=== PATIENT | female | born 1960 | race Caucasian/White ===

== ENCOUNTER 2023-10-10 16:10 | Inpatient (IN) | payer OTHER ==
[~2023-10-10] VITALS: Ht 165.1 cm; Wt 90.7 kg
[2023-10-10] MEDS: PIPERACILLIN /TAZOBACTAM 3.375 G in IV D5W 50 ML IV ONE (16:30)
[2023-10-10] MEDS: IV NS 0.9% 1,000 ML BAG IV ONE (17:00)
[2023-10-10] MEDS: VANCOMYCIN 1 GM in IV D5W 250 ML IV ONE (17:00)
[2023-10-10 17:15] LABS: BASOPHILS % (AUTO) 0.2 % (0.0-2.0); HEMATOCRIT 32 % (33-45); HEMOGLOBIN 10.5 g/dL (11.5-14.8); LYMPHOCYTES # (AUTO) 1.1 K/uL (0.8-4.8); LYMPHOCYTES % (AUTO) 5.6 % (20.0-44.0); MEAN CORPUSCULAR HEMOGLOBIN 27 PG (26.0-33.0); MEAN CORPUSCULAR HGB CONC 32 g/dl (31.0-36.0); MEAN CORPUSCULAR VOLUME 83 fL (82-100); MONOCYTES # (AUTO) 1.2 K/uL (0.1-1.30); MONOCYTES % (AUTO) 5.8 % (2.0-12.0); NEUTROPHILS # (AUTO) 17.8 K/uL (1.8-8.9); NEUTROPHILS % (AUTO) 88.4 % (43.0-81.0); PLATELET COUNT (AUTO) 373 K/uL (150-450); RED BLOOD CELL COUNT(AUTO) 3.92 MIL/uL (4.0-5.2); RED CELL DISTRIBUTION WIDTH 15.5 % (11.5-15.0); WHITE BLOOD COUNT (AUTO) 20.1 K/uL (4.3-11.0)
[2023-10-10 17:31] LABS: INR 1.12 (0.91-1.10); PARTIAL THROMBOPLASTIN TIME 27.1 SEC (24.3-34.3); PROTHROMBIN TIME 11.8 SECS (9.2-11.1)
[2023-10-10 17:33] LABS: CALCIUM, SERUM 8.9 mg/dL (8.5-10.1); CARBON DIOXIDE 22 mmol/L (21-32); CHLORIDE 108 mmol/L (98-107); CREATININE 3.1 mg/dL (0.6-1.3); GLUCOSE 144 mg/dL (74-106); POTASSIUM 3.2 mmol/L (3.5-5.1); SERUM AMMONIA 14 umol/L (11-32); SODIUM SERUM 145 mmol/L (136-145)
[2023-10-10 17:34] LABS: ALCOHOL, BLOOD < 3 mg/dL (0-10); SALICYLATE 3.4 mg/dL (2.8-20.0); UREA NITROGEN, BLOOD 82 mg/dL (7-18)
[2023-10-10 17:35] LABS: ACETAMINOPHEN 0 ug/ml (10-30)
[2023-10-10 17:40] LABS: LACTIC ACID 3.1 mmol/L (0.4-2.0)
[2023-10-10 17:45] LABS: ALANINE AMINOTRANSFERASE 39 U/L (12-78); ALBUMIN 3.3 g/dL (3.4-5.0); ALKALINE PHOSPHATASE 76 U/L (46-116); ASPARTATE AMINOTRANSFERASE 54 U/L (15-37); BILIRUBIN,DIRECT 0.1 mg/dL (0.0-0.2); BILIRUBIN,TOTAL 0.6 mg/dL (0.2-1.0); TOTAL PROTEIN, SERUM 6.4 g/dL (6.4-8.2)
[2023-10-10 17:47] LABS: THYROID STIMULATING HORMONE 0.569 uIU/mL (0.358-3.74)
[2023-10-10] MEDS: IV LR 1000 ML 1,000 ML BAG IV ONE (18:00)
[2023-10-10 18:13] LABS: LYMPHOCYTES % (MANUAL) 2 % (16-48); MONOCYTES % (MANUAL) 2 % (0-11.0); NEUTROPHILS % (MANUAL) 96 (42-76); PLATELET ESTIMATE ADEQUATE
[2023-10-10] MEDS: MIDAZOLAM HCL 2 MG/2ML VIAL IV ONE (18:30)
[2023-10-10] MEDS ORDERED: MIDAZOLAM HCL 5 MG/5ML VIAL ONE (18:36)
[2023-10-10] MEDS ORDERED: IV NS 0.9% 250 ML IV ONE (19:29)
[2023-10-10] MEDS ORDERED: IOHEXOL-300 100 ML VIAL IV ONE (19:29)
[2023-10-10 20:33] LABS: INR 1.14 (0.91-1.10); PARTIAL THROMBOPLASTIN TIME 26.5 SEC (24.3-34.3)
[2023-10-10 20:34] LABS: APPEARANCE,URINE CLEAR (CLEAR); BILIRUBIN,URINE NEGATIVE (NEGATIVE); BLOOD, URINE 3+ Ery/uL (NEGATIVE); COLOR,URINE YELLOW (YELLOW); KETONES,URINE NEGATIVE (NEGATIVE); LEUKOCYTE ESTERASE ,URINE NEGATIVE (NEGATIVE); NITRITE, URINE NEGATIVE (NEGATIVE); PH,URINE 5.5 (5.0-8.0); PROTEIN,URINE TRACE mg/dl (NEGATIVE); UGLUCOSE NEGATIVE (NEGATIVE); UROBILINOGEN,URINE 0.2 EU/dL (0.2)
[2023-10-10 20:36] LABS: BARBITURATE, URINE NEGATIVE (NEGATIVE); BENZODIAZEPINE, URINE NEGATIVE (NEGATIVE); CANNABINOID, URINE NEGATIVE (NEGATIVE); COCCAINE, URINE NEGATIVE (NEGATIVE); OPIATE, URINE NEGATIVE (NEGATIVE); PHENCYCLIDINE SCREEN,URINE NEGATIVE (NEGATIVE)
[2023-10-10 20:38] LABS: AMPHETAMINE, URINE POSITIVE (NEGATIVE)
[2023-10-10 20:46] LABS: PREGNANCY TEST URINE QUAL NEGATIVE (NEGATIVE)
[2023-10-10 21:13] LABS: ADD URINE CULTURE NO; BACTERIA,URINE Few /HPF (None Seen); MUCUS,URINE Few /LPF (None Seen); URIC ACID CRYSTALS,URINE Moderate /HPF (None Seen); WBC,URINE 0-2 /HPF (0-3)
[2023-10-10] MEDS: IV NS 0.9% 1,000 ML IV ONE (21:45)
[2023-10-10 22:30] VITALS: BP 156/95; TEMP 98; O2SAT 98
[2023-10-10] MEDS ORDERED: MAG HYDROX/AL HYDROX/SIMETH 30 ML UDC PO PRN (23:30)
[2023-10-10] MEDS ORDERED: Z GUARD REMEDY 4 OZ OINT TP PRN (23:30)
[2023-10-10] MEDS ORDERED: MAGNESIUM HYDROXIDE 30 ML UDC PO PRN (23:30)
[2023-10-10] MEDS ORDERED: ZOLPIDEM TARTRATE 5 MG TABLET PO PRN (23:30)
[2023-10-10] MEDS ORDERED: ONDANSETRON HCL/PF 4 MG/2 ML VIAL IVP PRN (23:30)
[2023-10-11] VITALS: BP 167/64; TEMP 98; O2SAT 99
[2023-10-11] MEDS ORDERED: ZOSYN IVPB 3.375 G in IV D5W 50ml IV ONE
[2023-10-11] MEDS: POTASSIUM CHLORIDE 20 MEQ TAB.PRT.SR PO ONE (00:11)
[2023-10-11] MEDS: PIPERACI/TAZO 3.375GM/D5W 50ML PB IV ONE (02:08)
[2023-10-11] MEDS: ZOSYN IVPB 3.375 G in IV D5W 50ml IV ONE (02:09)
[2023-10-11] MEDS: IV 1/2NS 1000 ML 1,000 ML IV PRN (02:31)
[2023-10-11 04:00] VITALS: BP 154/65; TEMP 98.9; O2SAT 100
[2023-10-11 06:46] LABS: BASOPHILS # (AUTO) 0.1 K/uL (0.0-0.2); BASOPHILS % (AUTO) 0.4 % (0.0-2.0); EOSINOPHILS # (AUTO) 0.1 K/uL (0.0-0.7); EOSINOPHILS % (AUTO) 0.4 % (0.0-6.0); HEMATOCRIT 27 % (33-45); HEMOGLOBIN 8.9 g/dL (11.5-14.8); LYMPHOCYTES # (AUTO) 1.5 K/uL (0.8-4.8); MEAN CORPUSCULAR HEMOGLOBIN 27 PG (26.0-33.0); MEAN CORPUSCULAR HGB CONC 33 g/dl (31.0-36.0); MEAN CORPUSCULAR VOLUME 83 fL (82-100); MONOCYTES # (AUTO) 0.7 K/uL (0.1-1.30); MONOCYTES % (AUTO) 4.5 % (2.0-12.0); NEUTROPHILS # (AUTO) 14.1 K/uL (1.8-8.9); NEUTROPHILS % (AUTO) 85.7 % (43.0-81.0); PLATELET COUNT (AUTO) 277 K/uL (150-450); RED BLOOD CELL COUNT(AUTO) 3.27 MIL/uL (4.0-5.2); RED CELL DISTRIBUTION WIDTH 15.4 % (11.5-15.0); WHITE BLOOD COUNT (AUTO) 16.4 K/uL (4.3-11.0)
[2023-10-11 07:19] LABS: THYROID STIMULATING HORMONE 0.736 uIU/mL (0.358-3.74)
[2023-10-11 07:20] LABS: CALCIUM, SERUM 8.7 mg/dL (8.5-10.1); CREATININE 2.5 mg/dL (0.6-1.3); POTASSIUM 3.4 mmol/L (3.5-5.1)
[2023-10-11 07:57] LABS: MAGNESIUM 2.1 mg/dL (1.8-2.4); PHOSPHORUS 3.2 mg/dL (2.5-4.9)
[2023-10-11 08:00] VITALS: BP 149/76; TEMP 98.8; O2SAT 99
[2023-10-11] MEDS: PANTOPRAZOLE 40 MG TABLET.DR PO SCH (08:22)
[2023-10-11] MEDS: HEPARIN SODIUM, PORCINE 5000 UNITS/1 ML VIAL SQ SCH (09:11)
[2023-10-11 12:00] VITALS: BP 153/65; TEMP 97.7; O2SAT 99
[2023-10-11] MEDS: PIPERACILLIN /TAZOBACTAM 3.375 G in IV D5W 100 ML IV SCH (13:32)
[2023-10-11 16:00] VITALS: BP 153/77; TEMP 98.1; O2SAT 98
[2023-10-11] MEDS: VANCOMYCIN HCL 750 MG in IV D5W 250 ML IV SCH (17:11)
[2023-10-11 20:00] VITALS: BP 162/64; TEMP 98.4; O2SAT 97
[2023-10-12] VITALS: BP 146/74; TEMP 98.4; O2SAT 98
[2023-10-12 04:00] VITALS: BP_SYST 181; BP_DIAS 140; BP_DIAS 158; TEMP 98.2; O2SAT 98
[2023-10-12] MEDS: hydrALAZINE HCL IV 20 MG VIAL IV PRN (04:17)
[2023-10-12 07:00] LABS: BASOPHILS # (AUTO) 0.1 K/uL (0.0-0.2); BASOPHILS % (AUTO) 0.6 % (0.0-2.0); EOSINOPHILS # (AUTO) 0.1 K/uL (0.0-0.7); EOSINOPHILS % (AUTO) 1.5 % (0.0-6.0); HEMATOCRIT 24 % (33-45); HEMOGLOBIN 8.2 g/dL (11.5-14.8); LYMPHOCYTES # (AUTO) 1.3 K/uL (0.8-4.8); LYMPHOCYTES % (AUTO) 13.9 % (20.0-44.0); MEAN CORPUSCULAR HEMOGLOBIN 28 PG (26.0-33.0); MEAN CORPUSCULAR HGB CONC 34 g/dl (31.0-36.0); MEAN CORPUSCULAR VOLUME 84 fL (82-100); MONOCYTES # (AUTO) 0.4 K/uL (0.1-1.30); MONOCYTES % (AUTO) 4.7 % (2.0-12.0); NEUTROPHILS # (AUTO) 7.4 K/uL (1.8-8.9); NEUTROPHILS % (AUTO) 79.3 % (43.0-81.0); PLATELET COUNT (AUTO) 212 K/uL (150-450); RED CELL DISTRIBUTION WIDTH 15.9 % (11.5-15.0); WHITE BLOOD COUNT (AUTO) 9.3 K/uL (4.3-11.0)
[2023-10-12 07:29] LABS: ALBUMIN 2.7 g/dL (3.4-5.0); BILIRUBIN,TOTAL 0.7 mg/dL (0.2-1.0); CALCIUM, SERUM 8.6 mg/dL (8.5-10.1); CREATININE 2.4 mg/dL (0.6-1.3); PHOSPHORUS 2.4 mg/dL (2.5-4.9); POTASSIUM 3.2 mmol/L (3.5-5.1); TOTAL PROTEIN, SERUM 5.9 g/dL (6.4-8.2)
[2023-10-12 08:00] VITALS: BP 153/80; TEMP 98.1; O2SAT 100
[2023-10-12] MEDS: AMLODIPINE BESYLATE 5 MG TABLET PO SCH (08:54)
[2023-10-12] MEDS: POTASSIUM CL. PREMIX PERIPHER. 50 ML IV SCH (10:37)
[2023-10-12 12:00] VITALS: BP 132/79; TEMP 98.4; O2SAT 99
[2023-10-12] MEDS ORDERED: DIATR MEGLU/DIATRIZOATE SODIUM 120 ML BOTTLE (GASTROGRAPHIN) ONE (12:05)
[2023-10-12 12:27] LABS: ABG BASE EXCESS -2.4 mmol/L; ABG OXYGEN SATURATION 97.5 % (92.0-98.5); ABG PH 7.472 (7.350-7.450); ABG PO2 99.3 mmHg (75.0-100.0); ABG TOTAL HEMOGLOBIN 8.3 G/dL (12.0-16.0); AaDO2 15.7 mmHg; COHb 0.8 % (0.5-1.5); O2Hb 96.7 % (94.0-97.0); SITE, ABG Right Radial; VENT MODE, BG ROOM AIR 21 %
[2023-10-12] MEDS: SOD FERRIC GLUC 125 MG in IV NS 0.9% 100 ML IV SCH (13:51)
[2023-10-12 16:00] VITALS: BP 138/78; TEMP 98.2; O2SAT 100
[2023-10-12] MEDS: K PHOS NEUTRAL 250 MG TABLET PO ONE (16:03)
[2023-10-12] MEDS: LORAZEPAM INJ 2 MG/ML VIAL IV PRN (16:15)
[2023-10-12] MEDS: ENSURE ENLIVE 237 ML LIQUID (VANILLA) PO SCH (17:07)
[2023-10-12] MEDS: METRONIDAZOLE 500MG/ NS 100ML 500 MG in PREMIX 1 EA IV SCH (17:08)
[2023-10-12] MEDS: CEFEPIME HCL 2 GM in IV D5W 100 ML IV SCH (17:20)
[2023-10-12 20:00] VITALS: BP 154/88; TEMP 98.1; O2SAT 98
[2023-10-12] MEDS: NICOTINE PATCH (21MG) 21 MG PATCH.TD24 TD SCH (21:16)
[2023-10-13] VITALS: BP 170/78; TEMP 98.3; O2SAT 98
[2023-10-13 04:00] VITALS: BP 154/79; TEMP 98.6; O2SAT 98
[2023-10-13] MEDS: ACETAMINOPHEN 325 MG TABLET PO PRN (04:18)
[2023-10-13 07:57] LABS: BASOPHILS % (AUTO) 0.7 % (0.0-2.0); EOSINOPHILS # (AUTO) 0.2 K/uL (0.0-0.7); EOSINOPHILS % (AUTO) 2.5 % (0.0-6.0); HEMATOCRIT 24 % (33-45); HEMOGLOBIN 7.9 g/dL (11.5-14.8); LYMPHOCYTES % (AUTO) 15.5 % (20.0-44.0); MEAN CORPUSCULAR HEMOGLOBIN 28 PG (26.0-33.0); MEAN CORPUSCULAR HGB CONC 33 g/dl (31.0-36.0); MEAN CORPUSCULAR VOLUME 84 fL (82-100); MONOCYTES # (AUTO) 0.4 K/uL (0.1-1.30); MONOCYTES % (AUTO) 5.5 % (2.0-12.0); NEUTROPHILS # (AUTO) 4.9 K/uL (1.8-8.9); NEUTROPHILS % (AUTO) 75.8 % (43.0-81.0); PLATELET COUNT (AUTO) 220 K/uL (150-450); RED BLOOD CELL COUNT(AUTO) 2.82 MIL/uL (4.0-5.2); RED CELL DISTRIBUTION WIDTH 16.4 % (11.5-15.0); WHITE BLOOD COUNT (AUTO) 6.5 K/uL (4.3-11.0)
[2023-10-13 08:00] VITALS: BP 163/79; TEMP 97.6; O2SAT 98
[2023-10-13 08:07] LABS: RAPID PLASMA REAGIN QUAL. Non Reactive (Non Reactive)
[2023-10-13 08:07] LABS: PTH, INTACT 39 pg/mL (15-65)
[2023-10-13 08:08] LABS: ALBUMIN 2.7 g/dL (3.4-5.0); BILIRUBIN,TOTAL 0.4 mg/dL (0.2-1.0); CALCIUM, SERUM 8.7 mg/dL (8.5-10.1); MAGNESIUM 2.2 mg/dL (1.8-2.4); POTASSIUM 3.3 mmol/L (3.5-5.1); TOTAL PROTEIN, SERUM 5.9 g/dL (6.4-8.2)
[2023-10-13 08:19] LABS: CALCIUM, SERUM 8.7 mg/dL (8.5-10.1); POTASSIUM 3.3 mmol/L (3.5-5.1)
[2023-10-13] MEDS: CYANOCOBALAMIN 500 MCG TABLET PO SCH (08:56)
[2023-10-13] MEDS: POTASSIUM CHLORIDE 10 MEQ TABLET.SA PO ONE (11:36)
[2023-10-13 12:00] VITALS: BP 148/86; TEMP 98.3; O2SAT 98
[2023-10-13] MEDS: FOLIC ACID 1 MG TABLET PO SCH (14:12)
[2023-10-13 16:00] VITALS: BP 156/82; TEMP 97.9; O2SAT 98
[2023-10-13 20:00] VITALS: BP 157/76; TEMP 97.9; O2SAT 98
[2023-10-14 04:00] VITALS: BP 144/72; TEMP 98.2; O2SAT 97
[2023-10-14 07:06] LABS: BASOPHILS % (AUTO) 0.4 % (0.0-2.0); EOSINOPHILS # (AUTO) 0.3 K/uL (0.0-0.7); EOSINOPHILS % (AUTO) 4.7 % (0.0-6.0); HEMATOCRIT 23 % (33-45); HEMOGLOBIN 7.7 g/dL (11.5-14.8); LYMPHOCYTES # (AUTO) 1.4 K/uL (0.8-4.8); LYMPHOCYTES % (AUTO) 23.6 % (20.0-44.0); MEAN CORPUSCULAR HEMOGLOBIN 28 PG (26.0-33.0); MEAN CORPUSCULAR HGB CONC 33 g/dl (31.0-36.0); MEAN CORPUSCULAR VOLUME 84 fL (82-100); MONOCYTES # (AUTO) 0.4 K/uL (0.1-1.30); MONOCYTES % (AUTO) 6.1 % (2.0-12.0); NEUTROPHILS # (AUTO) 3.9 K/uL (1.8-8.9); NEUTROPHILS % (AUTO) 65.2 % (43.0-81.0); PLATELET COUNT (AUTO) 238 K/uL (150-450); RED BLOOD CELL COUNT(AUTO) 2.73 MIL/uL (4.0-5.2); RED CELL DISTRIBUTION WIDTH 16.3 % (11.5-15.0); WHITE BLOOD COUNT (AUTO) 5.9 K/uL (4.3-11.0)
[2023-10-14 07:22] LABS: ALBUMIN 2.4 g/dL (3.4-5.0); BILIRUBIN,TOTAL 0.5 mg/dL (0.2-1.0); CALCIUM, SERUM 8.5 mg/dL (8.5-10.1); CREATININE 1.8 mg/dL (0.6-1.3); POTASSIUM 3.3 mmol/L (3.5-5.1); TOTAL PROTEIN, SERUM 5.4 g/dL (6.4-8.2)
[2023-10-14 08:00] VITALS: BP 159/89; TEMP 98.4; O2SAT 97
[2023-10-14] MEDS: HYDROCODONE/APAP 5/325MG TABLET PO PRN (11:11)
[2023-10-14] MEDS: POTASSIUM CHLORIDE 10 MEQ TABLET.SA PO ONE (11:35)
[2023-10-14] MEDS ORDERED: LORAZEPAM 0.5 MG TABLET PO PRN (12:00)
[2023-10-14 14:35] LABS: HIV-1 p24 ANTIGEN NON REACTIVE (NONREACTIVE); HIV-1/2 ANTIBODY NON REACTIVE (NONREACTIVE)
[2023-10-14 16:00] VITALS: BP 160/84; TEMP 98.6; O2SAT 97
[2023-10-14] MEDS ORDERED: LORAZEPAM INJ 2 MG/ML VIAL IV PRN (16:06)
[2023-10-14 20:00] VITALS: BP 156/79; TEMP 97.7; O2SAT 100
[2023-10-15 04:00] VITALS: BP 155/79; TEMP 98.4; O2SAT 96
[2023-10-15 06:51] LABS: BASOPHILS % (AUTO) 0.6 % (0.0-2.0); EOSINOPHILS # (AUTO) 0.4 K/uL (0.0-0.7); EOSINOPHILS % (AUTO) 7.2 % (0.0-6.0); HEMATOCRIT 24 % (33-45); HEMOGLOBIN 8.1 g/dL (11.5-14.8); LYMPHOCYTES % (AUTO) 19.3 % (20.0-44.0); MEAN CORPUSCULAR HEMOGLOBIN 29 PG (26.0-33.0); MEAN CORPUSCULAR HGB CONC 34 g/dl (31.0-36.0); MEAN CORPUSCULAR VOLUME 84 fL (82-100); MONOCYTES # (AUTO) 0.4 K/uL (0.1-1.30); MONOCYTES % (AUTO) 7.9 % (2.0-12.0); NEUTROPHILS # (AUTO) 3.5 K/uL (1.8-8.9); PLATELET COUNT (AUTO) 228 K/uL (150-450); RED BLOOD CELL COUNT(AUTO) 2.83 MIL/uL (4.0-5.2); RED CELL DISTRIBUTION WIDTH 16.3 % (11.5-15.0); WHITE BLOOD COUNT (AUTO) 5.4 K/uL (4.3-11.0)
[2023-10-15 07:06] LABS: *SPE ALBUMIN 2.7 g/dL (2.9-4.4); *SPE ALPHA-1-GLOBULIN 0.4 g/dL (0.0-0.4); *SPE ALPHA-2-GLOBULIN 0.7 g/dL (0.4-1.0); *SPE BETA GLOBULIN 0.7 g/dL (0.7-1.3); *SPE GLOBULIN, TOTAL 2.7 g/dL (2.2-3.9); *SPE M-SPIKE Not Observed g/dL (Not Observed); *SPE PROTEIN TOTAL 5.4 g/dL (6.0-8.5); *SPEGAMMA GLOBULIN 0.8 g/dL (0.4-1.8)
[2023-10-15 07:10] LABS: CALCIUM, SERUM 8.6 mg/dL (8.5-10.1); CREATININE 1.7 mg/dL (0.6-1.3); MAGNESIUM 1.9 mg/dL (1.8-2.4); PHOSPHORUS 3.7 mg/dL (2.5-4.9); POTASSIUM 3.4 mmol/L (3.5-5.1)
[2023-10-15 08:00] VITALS: BP 162/94; TEMP 97.9; O2SAT 99
[2023-10-15] MEDS: AMLODIPINE BESYLATE 5 MG TABLET PO SCH (08:36)
[2023-10-15] MEDS: METRONIDAZOLE 500 MG TABLET PO SCH (09:00)
[2023-10-15] MEDS: POTASSIUM CHLORIDE 20 MEQ TAB.PRT.SR PO SCH (09:27)
[2023-10-15] MEDS: IV 1/2NS 1000 ML 1,000 ML IV PRN (09:50)
[2023-10-15] MEDS: CLONIDINE HCL 0.1 MG TABLET PO SCH (11:34)
[2023-10-15 16:00] VITALS: BP 143/70; TEMP 98.6; O2SAT 99
[2023-10-15] MEDS ORDERED: VANCOMYCIN 1 GM in IV D5W 250ml IV SCH (17:00)
[2023-10-15 20:00] VITALS: BP 156/79; TEMP 98.2; O2SAT 98
[2023-10-16 04:00] VITALS: BP 151/76; TEMP 98.2; O2SAT 97
[2023-10-16 06:53] LABS: BASOPHILS % (AUTO) 0.5 % (0.0-2.0); EOSINOPHILS # (AUTO) 0.4 K/uL (0.0-0.7); EOSINOPHILS % (AUTO) 6.8 % (0.0-6.0); HEMATOCRIT 27 % (33-45); HEMOGLOBIN 8.9 g/dL (11.5-14.8); LYMPHOCYTES # (AUTO) 0.9 K/uL (0.8-4.8); LYMPHOCYTES % (AUTO) 16.6 % (20.0-44.0); MEAN CORPUSCULAR HEMOGLOBIN 28 PG (26.0-33.0); MEAN CORPUSCULAR HGB CONC 33 g/dl (31.0-36.0); MEAN CORPUSCULAR VOLUME 85 fL (82-100); MONOCYTES # (AUTO) 0.4 K/uL (0.1-1.30); MONOCYTES % (AUTO) 7.2 % (2.0-12.0); NEUTROPHILS # (AUTO) 3.9 K/uL (1.8-8.9); NEUTROPHILS % (AUTO) 68.9 % (43.0-81.0); PLATELET COUNT (AUTO) 247 K/uL (150-450); RED BLOOD CELL COUNT(AUTO) 3.13 MIL/uL (4.0-5.2); RED CELL DISTRIBUTION WIDTH 16.4 % (11.5-15.0); WHITE BLOOD COUNT (AUTO) 5.7 K/uL (4.3-11.0)
[2023-10-16 07:23] LABS: CREATININE 1.7 mg/dL (0.6-1.3); MAGNESIUM 2.1 mg/dL (1.8-2.4); PHOSPHORUS 3.4 mg/dL (2.5-4.9); POTASSIUM 3.2 mmol/L (3.5-5.1)
[2023-10-16 08:00] VITALS: BP 171/82; TEMP 98.6; O2SAT 97
[2023-10-16] MEDS: POTASSIUM CL. PREMIX PERIPHER. 50 ML IV SCH (09:41)
[2023-10-16 16:00] VITALS: BP 164/88; TEMP 98.6; O2SAT 97
[2023-10-16 20:00] VITALS: BP 131/71; TEMP 98; O2SAT 96
[2023-10-17 04:00] VITALS: BP 146/86; TEMP 97.9; O2SAT 98
[2023-10-17 06:58] LABS: CREATININE 1.6 mg/dL (0.6-1.3); POTASSIUM 3.2 mmol/L (3.5-5.1)
[2023-10-17 08:00] VITALS: BP 162/82; TEMP 98.1; O2SAT 99
[2023-10-17] MEDS: POTASSIUM CL. PREMIX PERIPHER. 50 ML IV SCH (10:18)
[2023-10-17] MEDS ORDERED: Folic Acid PO (13:14)
[2023-10-17] MEDS ORDERED: CYAN500T64 PO (13:14)
[2023-10-17] MEDS ORDERED: AMLO-212 PO (13:14)
[2023-10-17] MEDS ORDERED: PANT40TA49 PO (13:14)
[2023-10-17 16:00] VITALS: BP 149/69; TEMP 98.6; O2SAT 99
[2023-10-17 20:00] VITALS: BP 144/80; TEMP 98.4; TEMP 98.8; O2SAT 96
[2023-10-18 04:00] VITALS: BP 167/86; TEMP 98.4; O2SAT 95
[2023-10-18 07:21] LABS: CALCIUM, SERUM 9.2 mg/dL (8.5-10.1); CREATININE 1.6 mg/dL (0.6-1.3); POTASSIUM 3.7 mmol/L (3.5-5.1)
[2023-10-18 08:00] VITALS: BP 139/87; TEMP 98.4; O2SAT 100
[2023-10-18 08:54] VITALS: BP 139/87
== END 2023-10-18 12:19 | DRG 720 ==
LOC: ER 16:15 → TELE1 21:04 → MEDSG1 10-13 15:04
PROVIDERS: ADMIT Student in an Organized Health Care Education/Training Program; ATTEND Nurse Practitioner Acute Care
PROC: 05HY33Z Insertion of Infusion Device into Upper Vein, Percutaneous Approach (ICD-10-PCS; principal; 2023-10-12)
DX: A41.9 Sepsis, unspecified organism (principal); N17.0 Acute kidney failure with tubular necrosis; I21.A1 Myocardial infarction type 2; E44.1 Mild protein-calorie malnutrition; G92.8 Other toxic encephalopathy; D63.1 Anemia in chronic kidney disease; E87.0 Hyperosmolality and hypernatremia; E87.20 Acidosis, unspecified; M62.82 Rhabdomyolysis; L03.317 Cellulitis of buttock; L02.31 Cutaneous abscess of buttock; E87.6 Hypokalemia; N28.1 Cyst of kidney, acquired; M89.8X9 Other specified disorders of bone, unspecified site; K80.20 Calculus of gallbladder without cholecystitis without obstruction; F15.10 Other stimulant abuse, uncomplicated; J98.2 Interstitial emphysema; R91.1 Solitary pulmonary nodule; K42.9 Umbilical hernia without obstruction or gangrene; Z68.33 Body mass index [BMI] 33.0-33.9, adult; S70.01XA Contusion of right hip, initial encounter; X58.XXXA Exposure to other specified factors, initial encounter; Y93.9 Activity, unspecified; Y92.009 Unspecified place in unspecified non-institutional (private) residence as the place of occurrence of the external cause; N18.2 Chronic kidney disease, stage 2 (mild); I71.9 Aortic aneurysm of unspecified site, without rupture; R53.1 Weakness; Z20.822 Contact with and (suspected) exposure to COVID-19
CPT/HCPCS: 36415; 36600; 70450-TC; 71045-TC; 71250-TC; 74230-TC; 76770-TC; 80048-TC; 80053-TC; 80061-TC; 80076-TC; 80202-TC; 81001; 82140-TC; 82550-TC; 82553; 82607-TC; 82728-TC; 82962-TC; 83540-TC; 83605-TC; 83735-TC; 83970; 84100-TC; 84155; 84165; 84443-TC; 84484-TC; 84703-TC; 85025-TC; 85610-TC; 85730-TC; 86592; 86593; 86803; 87040-TC; 87081-TC; 87086-TC; 87806; 92526; 92611-TC; 93307-TC; 97112-TC; 97116-TC; 97530-TC; A4216; A4223; A6253; A6403; G0378; G0480; J0360; J0692; J1644; J2060; J2250; J2543; J2916; J3370; J3371; J3480; J3490; J7030; J7050; J7060; J7120; Q9963; Q9967

== ENCOUNTER 2023-11-02 12:54 | Emergency (ER) | payer OTHER ==
[~2023-11-02] VITALS: Ht 165.1 cm; Wt 79.4 kg
[~2023-11-02 12:54] MED LIST: AMLO-212 PO; CYAN500T64 PO; Folic Acid PO; PANT40TA49 PO
[2023-11-02 12:59] VITALS: TEMP 98.4
[2023-11-02 13:24] LABS: BASOPHILS % (AUTO) 0.6 % (0.0-2.0); EOSINOPHILS # (AUTO) 0.2 K/uL (0.0-0.7); EOSINOPHILS % (AUTO) 3.2 % (0.0-6.0); HEMATOCRIT 35 % (33-45); HEMOGLOBIN 11.3 g/dL (11.5-14.8); LYMPHOCYTES # (AUTO) 0.8 K/uL (0.8-4.8); MEAN CORPUSCULAR HEMOGLOBIN 28 PG (26.0-33.0); MEAN CORPUSCULAR HGB CONC 32 g/dl (31.0-36.0); MEAN CORPUSCULAR VOLUME 86 fL (82-100); MONOCYTES # (AUTO) 0.3 K/uL (0.1-1.30); MONOCYTES % (AUTO) 4.2 % (2.0-12.0); NEUTROPHILS # (AUTO) 6.3 K/uL (1.8-8.9); PLATELET COUNT (AUTO) 322 K/uL (150-450); RED BLOOD CELL COUNT(AUTO) 4.05 MIL/uL (4.0-5.2); RED CELL DISTRIBUTION WIDTH 17.9 % (11.5-15.0); WHITE BLOOD COUNT (AUTO) 7.7 K/uL (4.3-11.0)
[2023-11-02] MEDS: IV NS 0.9% 1,000 ML BAG IV ONE (13:25)
[2023-11-02 13:36] LABS: ALANINE AMINOTRANSFERASE 21 U/L (12-78); ALBUMIN 3.5 g/dL (3.4-5.0); ALKALINE PHOSPHATASE 93 U/L (46-116); ASPARTATE AMINOTRANSFERASE 14 U/L (15-37); BILIRUBIN,DIRECT 0.1 mg/dL (0.0-0.2); BILIRUBIN,TOTAL 0.3 mg/dL (0.2-1.0); CALCIUM, SERUM 9.6 mg/dL (8.5-10.1); CARBON DIOXIDE 19 mmol/L (21-32); CHLORIDE 106 mmol/L (98-107); CREATININE 2.6 mg/dL (0.6-1.3); GLUCOSE 160 mg/dL (74-106); POTASSIUM 3.2 mmol/L (3.5-5.1); SODIUM SERUM 141 mmol/L (136-145); TOTAL PROTEIN, SERUM 7.6 g/dL (6.4-8.2); UREA NITROGEN, BLOOD 27 mg/dL (7-18)
[2023-11-02 15:21] LABS: PREGNANCY TEST URINE QUAL NEGATIVE (NEGATIVE)
[2023-11-02 15:30] LABS: APPEARANCE,URINE Clear (CLEAR); BILIRUBIN,URINE Negative (NEGATIVE); BLOOD, URINE Trace-intact Ery/uL (NEGATIVE); COLOR,URINE YELLOW (YELLOW); KETONES,URINE Negative (NEGATIVE); LEUKOCYTE ESTERASE ,URINE Negative (NEGATIVE); NITRITE, URINE Negative (NEGATIVE); PROTEIN,URINE Negative (NEGATIVE); UGLUCOSE Negative (NEGATIVE); UROBILINOGEN,URINE 0.2 EU/dL (0.2)
[2023-11-02 15:55] LABS: ADD URINE CULTURE NO; BACTERIA,URINE None seen /HPF (None Seen); WBC,URINE 0-2 /HPF (0-3)
[2023-11-02 16:17] VITALS: BP 135/78; O2SAT 98
== END 2023-11-02 15:55 | disposition home or self-care (01) ==
LOC: ER 12:54
DX: E86.0 Dehydration (principal); R55 Syncope and collapse; N17.9 Acute kidney failure, unspecified; E87.6 Hypokalemia; R10.2 Pelvic and perineal pain
CPT/HCPCS: 99285; 96360; 71045; 93005; 85025; 80048; 80076; 84703; 81001; 36415; 84484; J7030